=== PATIENT | female | born 1980 | race Caucasian/White ===

== ENCOUNTER → 2016-11-01 | Outpatient (CLI) | payer MEDICAID ==
[~2016-11-01] MED LIST: ALBUTEROL2 PUFFS/17 IN; AMOXIL500 MG PO; MEDROL 4MG. DOSE4 MG PO; MOTRIN 400MG.400 MG PO; PERCOCET 5/3251 EACH PO; VOLTAREN75 MG PO
--- NOTE | 2016-11-05 11:01 | RADIOLOGY REPORT PS360 ---
US BREAST-RT COMPLETE W/AXILLA COMPARISON: Right breast ultrasound of 04/12/2016 and mammogram of 04/12/2016 INDICATION: 6 month follow-up ORDERING PHYSICIAN: [facility] PATIENT AGE: 36 years TECHNIQUE: Standard ultrasound images FINDINGS: A 4 mm complex cyst is present at 3:00. 5 mm cyst at 10:00 IMPRESSION: Benign findings. No evidence of malignancy BI-RADS CATEGORY: 2_Benign RECOMMENDED FOLLOWUP: Annual Screening mammogram per routine protocol (A letter has been sent to the patient regarding results of the study.)
--- NOTE | 2016-11-05 11:01 | RADIOLOGY REPORT PS360 ---
US BREAST-RT COMPLETE W/AXILLA COMPARISON: Right breast ultrasound of 04/12/2016 and mammogram of 04/12/2016 INDICATION: 6 month follow-up ORDERING PHYSICIAN: [facility] PATIENT AGE: 36 years TECHNIQUE: Standard ultrasound images FINDINGS: A 4 mm complex cyst is present at 3:00. 5 mm cyst at 10:00 IMPRESSION: Benign findings. No evidence of malignancy BI-RADS CATEGORY: 2_Benign RECOMMENDED FOLLOWUP: Annual Screening mammogram per routine protocol (A letter has been sent to the patient regarding results of the study.)
== END ==
LOC: RAD 14:23
DX: R92.8 Other abnormal and inconclusive findings on diagnostic imaging of breast (principal)